=== PATIENT | female | born 2000 | race Caucasian/White ===

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

== ENCOUNTER 2021-03-19 17:13 | Emergency (ER) | payer MEDICAID, SELFPAY ==
[2021-03-19 17:29] VITALS: BP 114/68; PULSE 106; RESP 15; TEMP 36.6; O2SAT 99
--- NOTE | 2021-03-19 17:40 | ED.GENADUL_ITS ---
Discharge Plan Disposition Patient Disposition: HOME Condition: Stable Discharge Details Clinical Impression: Exudative pharyngitis Primary Care Provider: Unknown,Unknown ED Provider: Tanvi Sim Home Meds and New Rx's Prescriptions: New azithromycin [Zithromax] 500 mg tablet 500 mg PO DAILY 4 Days Qty: 4 RF: 0 Continued Mirena 20 mcg/24 hours (5 yrs) 52 mg intrauterine device 1 device IY ONCE RF: 0 ibuprofen 200 mg Tablet 400 mg PO PRN PRNRF: 0 Discharge Instructions Instructions: Pharyngitis (ED) Additional Instructions: Your rapid strep A test today is negative. It is suspected that you have another type of strep throat which may be identified by your throat culture which was also obtained today and takes several days to obtain a final result. A prescription for antibiotics has been sent electronically to your pharmacy. Take this as directed until finished. Alternate tylenol and motrin as needed and directed for pain. Follow-up with your primary care doctor in 1 week. Return to the emergency department with any worsening or new concerning symptoms . Stand Alone Forms: Work Release Discharge Data Discharge Date/Time-TO BE ENTERED AT DEPARTURE: 03/19/21 18:07 Discharge Physician: Tanvi Sim Medical Decision Making 20-year-old female presents with sore throat for the past 4 days. She has had 2 recent rapid negative COVID tests. Heart rate mildly elevated, remainder vitals within normal limits. She appears comfortable and nontoxic. She has bilateral tonsillar edema, erythema and exudates. No drooling or trismus. Her rapid strep test is negative but her presentation appears consistent with exudative pharyngitis consistent potentially with another form of strep throat. Also consider mono. Will cover with antibiotics at this time. test negative per nursing. Patient has a history of allergy to penicillin. She states she has tolerated Zithromax in the past. She was given 1 dose here and prescription sent electronically to her pharmacy. Advised to follow up with the primary care doctor for re-evaluation. Usual and customary return precautions given prior to discharge. Medical Records Medical records reviewed: Yes I reviewed the patient's medical records. HPI General Mode of arrival: ambulatory . Date/Time Provider Initiated Documentation: 03/19/21 17:35 . Limitations to Documentation: no limitations . Information obtained by: patient . HPI Narrative: Patient is a 20-year-old female who presents to the ED with a complaint of sore throat for the past 4 days. She states her main complaint is sore throat but also has felt feverish with a headache. She denies any cough or shortness of breath. She states she had a negative rapid COVID test 3 days ago and today. Related Data Home Medications Medication Instructions Recorded Confirmed levonorgestrel 20 mcg/24 hours (7 1 device IY ONCE 03/13/19 yrs) 52 mg intrauterine device azithromycin [Zithromax] 500 mg PO DAILY 4 Days #4 tab 03/19/21 ibuprofen 400 mg PO PRN PRN 03/19/21 03/19/21 Previous Rx's Medication Instructions Recorded azithromycin [Zithromax] 500 mg PO DAILY 4 Days #4 tab 03/19/21 Allergies Allergy/AdvReac Type Severity Reaction Status Date / Time Penicillins Allergy Severe Rash and Verified 03/19/21 17:34 diff breathing General Stated Complaint: Sorethroat LINDA: 4 Review of Systems All systems reviewed & are unremarkable except as noted in HPI and below Constitutional Constitutional: Reports as per HPI, Denies chills, Reports fever(s) and Reports headache(s) Eyes Eyes: Denies blurry vision ENT Ears, Nose, Mouth, and Throat: Denies dizziness, Reports headache(s), Reports sore throat and Denies throat swelling Cardiovascular Cardiovascular: Denies chest pain and Denies dyspnea Respiratory Respiratory: Denies cough and Denies dyspnea Gastrointestinal Gastrointestinal: Denies abdominal pain, Denies diarrhea and Denies vomiting Genitourinary Genitourinary: Denies hematuria and Denies dysuria Musculoskeletal Musculoskeletal: Denies back pain and Denies numbness Integumentary/Breasts Skin/Breast: Denies lesions and Denies rash Neurologic Neurologic: Denies dizziness, Reports headache(s), Denies localized weakness and Denies numbness Allergic/Immunologic Allergic/Immunologic: Denies throat swelling PFSH All Active Problems (Updated 03/19/21 @ 17:54 by Tanvi Sim DO) Exudative pharyngitis (Acute) Contraception (Acute) Allergic rhinitis, unspecified (Chronic 07/21/15) allergy to dust mites, grass, pollens, cat,dog,horse Deliberate self-cutting (Chronic) History of penicillin allergy (Chronic 10/24/11) Mild persistent asthma without complication (Chronic 07/21/15) followed by [facility] Allergy not taking her meds including the albuterol Medical History (Updated 03/19/21 @ 17:54 by Tanvi Sim DO) Allergic rhinitis Asthma Routine child health exam (10/24/11) NORMAL LEAD 2005. Family History Mother Mental disorder anxiety Father Mental disorder anxiety Other Essential hypertension MGGM Hyperlipidemia MGGM Neoplasm MGM-breast Social History (Updated 03/13/19 @ 10:26 by Helene Roth RN) Smoking/Tobacco Use Status: Never Smoking risk assessment performed?: Yes Alcohol Intake: never Drug use: Never Substance use type: does not use Pets and animals: Yes Pets and animals: dog(s) and hamster(s) Current gender identity: female Do you feel safe at home: Yes Do you feel safe in your relationship?: Yes Female Reproductive History Menstrual Age of Menarche: 12 History History 0 Para Hx # Term Pregnancies Multiple births Hx # Pregnancies Ectopic pregnancies AB induced Hx Number of Living Children AB spontaneous Exam Const General: cooperative, healthy appearing and no acute distress HENMT Head: normal to inspection Ears: hearing grossly normal bilaterally, external ears normal and TM's normal bilaterally General nose exam: external nose normal Face and sinus: normal facial exam Mouth: oral mucosae normal Throat: uvula midline, no peritonsillar masses and posterior oropharynx abnormal edema, erythema and exudates Eyes General: appearance normal, both eyes and all related structures EOM: EOM intact bilaterally Neck Neck: normal visual inspection, lymphadenopathy (b/l anterior cervical, minimal, tender) and No submandibular swelling Lymphatic: no lymphadenopathy noted Chest Chest: normal inspection of the chest and no tenderness Resp Effort & Inspection: normal respiratory effort and able to speak in complete sentences Auscultation: clear to auscultation bilaterally Cardio Rate: regular rate Rhythm: regular rhythm Skin General skin exam: no rashes or lesions noted Neuro General: patient alert, patient awake and patient oriented x3 Cognition: normal cognition Speech: speech normal Motor: muscle tone normal throughout Sensory Exam: no sensory deficits noted Extrem General: normal to inspection, full ROM, capillary refill normal, no calf tenderness bilaterally and no edema Psych Appearance: grossly normal Mental Status: mental status grossly normal Speech and Movement: speech and movement normal Affect: normal affect Course Vital Signs Vital signs: Vital Signs Temperature 97.9 F 03/19/21 17:29 Pulse 106 H 03/19/21 17:29 Respiratory Rate 15 03/19/21 17:29 Blood Pressure 114/68 03/19/21 17:29 Pulse Oximetry 99 03/19/21 17:29 Temperature 97.9 F 03/19/21 17:29 Temperature Source Temporal Artery Scan 03/19/21 17:29 Pulse 106 H 03/19/21 17:29 Respiratory Rate 15 03/19/21 17:29 Blood Pressure 114/68 03/19/21 17:29 Blood Pressure Position Sitting 03/19/21 17:29 Pulse Oximetry 99 03/19/21 17:29 Oxygen Delivery Method Room Air 03/19/21 17:29 Oxygen Flow Rate 0 03/19/21 17:29
[2021-03-19] MEDS: Dexamethasone 10 MG/ML VIAL PO (17:56)
[2021-03-19] MEDS: Azithromycin 250 MG TAB 500 MG PO ×2 (17:56→18:06)
== END 2021-03-19 18:07 | disposition home or self-care (01) ==
PROVIDERS: Emergency Provider Physician Assistant
DX: J02.8 Acute pharyngitis due to other specified organisms (principal); R00.0 Tachycardia, unspecified
CPT/HCPCS: 87880; 99283; 87081; J1100

== ENCOUNTER 2021-04-19 15:20 | Outpatient (REF) | payer MEDICAID, SELFPAY ==
[2021-04-26 12:29] LABS: Chlamydia Result Negative (Negative); GC Result Negative (Negative)
== END 2021-04-19 15:21 | disposition home or self-care (01) ==
LOC: LBN 15:20
PROVIDERS: Nurse Practitioner Family; Visit Provider Nurse Practitioner Women's Health
DX: R30.0 Dysuria (principal); Z11.3 Encounter for screening for infections with a predominantly sexual mode of transmission
CPT/HCPCS: 87086

== ENCOUNTER 2021-04-22 19:05 | Emergency (ER) | payer MEDICAID, SELFPAY ==
[2021-04-22 19:10] VITALS: BP 114/87; PULSE 92; RESP 16; TEMP 36.1; O2SAT 99
[2021-04-22 19:42] LABS: Bilirubin Negative (Negative); Blood Negative (Negative); Clarity Sl Cloudy (Clear); Glucose Negative (Negative); Ketones Negative (Negative); Leukocyte Esterase Negative (Negative); Nitrite Negative (Negative); Urobilinogen 0.2 EU/dL (Up TO 0.2)
--- NOTE | 2021-04-22 20:15 | DI.CT_ITS ---
Exam(s) CT ABDOMEN PELVIS W EXAM: CT ABDOMEN PELVIS W CLINICAL HISTORY: Right Flank pain. TECHNIQUE: Imaging Protocol: Axial computed tomography images with coronal and sagittal reformatted images were created and reviewed CONTRAST MATERIAL: Intravenous: Omnipaque 100cc Oral: None COMPARISON: CT CT ABDOMEN PELVIS W from 11/17/2018 FINDINGS: VISUALIZED LUNG BASES: No nodules nor pleural effusions evident. ABDOMEN: There is no ascites. LIVER: There are no focal hepatic lesions evident . GALLBLADDER/BILIARY: Gallbladder is contracted and difficult to assess. No obvious calculi. CBD is not dilated. PANCREAS: No evidence of pancreatic mass nor dilatation of the pancreatic duct. SPLEEN: Spleen is not enlarged. No obvious intrasplenic lesions. Splenic and portal veins are paten t. ADRENALS: There are no significant adrenal masses. KIDNEYS:No cysts evident. No solid renal masses. No calculi nor hydronephrosis.. ABDOMINAL AORTA: Abdominal aorta is not enlarged. LYMPH NODES:There is no retroperitoneal nor paraaortic adenopathy. ABDOMINAL WALL: No evidence of significant anterior abdominal wall nor inguinal hernia. GI: There is no evidence of bowel obstruction, free air, nor abscess. Increased amount of fecal material is noted throughout the length of the colon, similar to prior stud y of 2019, perhaps slightly more at this time. PELVIS: GI: No evidence of appendicitis.No evidence of sigmoid diverticular disease. LYMPH NODES: There is no intrapelvic nor inguinal adenopathy. REPRODUCTIVE: There is an IUD in the uterine canal. Appears to be in satisfactory position. The bautista meeta is anteverted. Ovaries appear age-appropriate. No extraovarian adnexal masses. No free fluid i n the pelvis. URINARY BLADDER: No calculi nor obvious masses evident OSSEOUS: No significant osseous lesions. No fractures. Sacroiliac joints unremarkable. IMPRESSION: 1. No acute significant process in the abdomen pelvis. 2. Abundant fecal material throughout the length of the colon, slightly more so than on the 2019 stud y and correlation any clinical symptoms of constipation recommended. However, there is no evidence o f acute bowel pathology. 3. IUD is noted in satisfactory position in the endometrial canal. There are no abnormal adnexal mas ses and no free fluid in the adnexal regions are cul-de-sac. 4. The gallbladder is contracted but without obvious calculi therein. There is no dilatation of the biliary tree, both intra and extrahepatic. RADIATION DOSE DELIVERED: 530.26mGy.cm Total DLP DATA REPOSITORY: All CT scans at this facility are submitted to the National Radiology Data Registry (NRDR) Dose Index Registry (DIR) with the [employer] (A[employer]). RADIATION OPTIMIZATION: All CT scans at this facility use at least one of these dose optimization te chniques: automated exposure control; mA and/or kV adjustment per patient size (includes targeted exa ms where dose is matched to clinical indication); or iterative reconstruction.
[2021-04-22 20:22] LABS: Abs Immature Grans 0.01 10^3/uL (0.0-0.06); Absolute Basophil Count 0.08 10^3/uL (0.0-0.2); Absolute Eosinophil Count 0.69 10^3/uL (0.0-0.7); Absolute Lymphocyte Count 3.46 10^3/uL (1.2-3.4); Absolute Monocyte Count 0.78 10^3/uL (0.1-0.8); Absolute Neutrophil Count 3.51 10^3/uL (1.2-6.7); Basophils % 0.9; Eosinophils % 8.1; HCT 38.3 % (36.0-46.0); HGB 12.8 g/dL (11.2-15.7); Immature Grans % 0.1; Lymphocytes % 40.6; MCH 30.6 pg (27.0-33.0); MCHC 33.4 % (32.0-36.0); MCV 91.6 fL (80-95); MPV 9.3 fL (8.0-11.0); Monocytes % 9.1; Neutrophils % 41.2; Nucleated RBC 0 %; Platelet Count 311 10^3/uL (130-400); RBC 4.18 10^6/uL (3.93-5.22); RDW 12.1 % (11.7-14.6); WBC 8.53 10^3/uL (4.4-10.8)
[2021-04-22 20:36] LABS: ALT 31 U/L (14-59); AST 26 U/L (15-37); Albumin 4.5 g/dL (3.4-5.0); Alkaline Phosphatase 91 U/L (46-116); Anion Gap 7.9 mmol/L (3-11); BUN 12 mg/dL (7-18); Bilirubin, Total 0.2 mg/dL (0.2-1.0); CO2 26.1 mmol/L (21.0-32.0); CREATININE 1.1 mg/dL (0.55-1.02); Calcium 9.6 mg/dL (8.5-10.1); Chloride 103 mmol/L (98-107); Glucose 98 mg/dL (74-106); Magnesium 2.2 mg/dL (1.8-2.4); Sodium 137 mmol/L (136-145); Total Protein 7.8 g/dL (6.4-8.2)
--- NOTE | 2021-04-22 21:10 | W.ED.GENAD ---
Discharge Plan Disposition Patient Disposition: HOME Condition: Stable Discharge Details Clinical Impression: Constipation, Abdominal pain Primary Care Provider: Unknown,Unknown ED Provider: Rashida East Home Meds and New Rx's Prescriptions: Continued Mirena 20 mcg/24 hours (5 yrs) 52 mg intrauterine device 1 device IY ONCE 0RF ibuprofen 200 mg Tablet 400 mg PO PRN PRN0RF sulfamethoxazole-trimethoprim 800-160 mg tablet 0RF Discharge Instructions Instructions: Constipation (ED), Abdominal Pain (ED) Additional Instructions: Follow up with primary care provider in 3-5 days. Return to ED sooner if any worsening or concerns. Increase oral fluids. Please keep your [facility] appointment on Saturday as previously scheduled. Consider taking an [id number] stool softener such as Colace or similar. You may also try eating prunes or drinking prune juice. Please return to the ER for any worsening pain, fever, vomiting. Please take Tylenol or Ibuprofen with food every 4-6 hours as needed for pain and swelling. Medical Decision Making 20-year-old female presents to the ER with chief complaint of suprapubic abdominal pressure and back pain. Patient reports that 2 weeks ago she developed symptoms that she thought were a yeast infection including discharge and burning. She reports she was seen by [facility] approximately a week ago and was diagnosed with urinary tract infection and was placed on antibiotic. Patient cannot remember the name of the antibiotic however she finished her last medication yesterday and is continuing to have pressure and pain. She reports sharp intermittent pain. She denies any purulent drainage. She does have an IUD placed and states that she has an appointment on Saturday to have it removed. CBC shows no leukocytosis,, BUN 12 creatinine 1.1 GFR greater than 60 urinalysis shows no evidence for infection including no leukocytes no nitrite. Will perform CT abdomen pelvis to rule out kidney stone or pyelonephritis, also discussed pelvic exam and testing for gonorrhea chlamydia and vaginal pathogen screen. Patient agrees to allow me to remove her IUD as well. [facility]. Pelvic exam performed swabs obtained for vaginal pathogens and GC chlamydia. Patient tolerated with some difficulty. Cervical os was reviewed, there is some thick white discharge noted no significant lesions there is however small amount of erythema noted to the cervical os. Bimanual exam performed adnexa nontender. CT shows moderate stool retention IMPRESSION: 1. Moderate retained fecal material throughout the colon. No acute bowel pathology demonstrated. 2. Ovaries partially obscured but normal in size. Possible trace free pelvic fluid on the right. 3. T-shaped intrauterine device in situ. 4. Uniform renal parenchymal enhancement. No hydronephrosis or other evidence of obstructive uropathy. Discussed CT results with patient who verbalized understanding. Patient states she did have a normal bowel movement this morning. I did encourage her to keep her upcoming appointment on Saturday with [facility] to review the results of the swabs with her. Discuss strict return instructions. Patient be discharged home. Lab Data Lab results reviewed: Yes I reviewed the patient's lab results. Lab results narrative: Laboratory Tests Range/Units 04/22/21 04/22/21 04/22/21 19:20 20:15 20:15 WBC (4.4-10.8) 10^3/uL 8.53 RBC (3.93-5.22) 10^6/uL 4.18 Hgb (11.2-15.7) g/dL 12.8 Hct (36.0-46.0) % 38.3 MCV (80-95) fL 91.6 MCH (27.0-33.0) pg 30.6 MCHC (32.0-36.0) % 33.4 RDW (11.7-14.6) % 12.1 Plt Count (130-400) 10^3/uL 311 MPV (8.0-11.0) fL 9.3 Immature Gran % 0.1 Neutrophils % 41.2 Lymphocytes % 40.6 Monocytes % 9.1 Eosinophils % 8.1 Basophils % 0.9 Nucleated RBC % % 0 Absolute Neutrophils (1.2-6.7) 10^3/uL 3.51 Absolute Lymphocytes (1.2-3.4) 10^3/uL 3.46 H Absolute Monocytes (0.1-0.8) 10^3/uL 0.78 Absolute Eosinophils (0.0-0.7) 10^3/uL 0.69 Absolute Basophils (0.0-0.2) 10^3/uL 0.08 Sodium (136-145) mmol/L 137 Potassium (3.5-5.1) mmol/L 4.0 Chloride (98-107) mmol/L 103 Carbon Dioxide (21.0-32.0) mmol/L 26.1 Anion Gap (3-11) mmol/L 7.9 BUN (7-18) mg/dL 12 Creatinine (0.55-1.02) mg/dL 1.1 H Estimated GFR/1.73 m2 (mL/min/1.73m2) >= 60.00 Glucose (74-106) mg/dL 98 Calcium (8.5-10.1) mg/dL 9.6 Magnesium (1.8-2.4) mg/dL 2.2 Total Bilirubin (0.2-1.0) mg/dL 0.2 AST (15-37) U/L 26 ALT (14-59) U/L 31 Alkaline Phosphatase (46-116) U/L 91 Total Protein (6.4-8.2) g/dL 7.8 Albumin (3.4-5.0) g/dL 4.5 Urine Color (Yellow) Yellow Urine Clarity (Clear) Sl Cloudy Urine pH (5-8) 8.0 Ur Specific [place] (1.005-1.025) 1.020 Urine Protein (Negative) mg/dL Negative Urine Ketones (Negative) mg/dL Negative Urine Blood (Negative) Negative Urine Nitrite (Negative) Negative Urine Bilirubin (Negative) Negative Urine Urobilinogen (Up TO 0.2) EU/dL 0.2 Ur Leukocyte Esterase (Negative) Negative Urine Glucose (Negative) mg/dL Negative HPI General Mode of arrival: ambulatory. Date/Time Provider Initiated Documentation: 04/22/21 19:15. Limitations to Documentation: no limitations. Information obtained by: patient, RN notes reviewed and old records reviewed. HPI Narrative: 20-year-old female presents to the ER with chief complaint of suprapubic abdominal pressure and back pain. Patient reports that 2 weeks ago she developed symptoms that she thought were a yeast infection including discharge and burning. She reports she was seen by [facility] approximately a week ago and was diagnosed with urinary tract infection and was placed on antibiotic. Patient cannot remember the name of the antibiotic however she finished her last medication yesterday and is continuing to have pressure and pain. She reports sharp intermittent pain. She denies any purulent drainage. She does have an IUD placed and states that she has an appointment on Saturday to have it removed. Related Data Home Medications Medication Instructions Recorded Confirmed levonorgestrel 20 mcg/24 hours (7 1 device IY ONCE 03/13/19 04/22/21 yrs) 52 mg intrauterine device (Mirena) ibuprofen 200 mg tablet 400 mg PO PRN PRN 03/19/21 04/22/21 sulfamethoxazole 800 tab 04/22/21 mg-trimethoprim 160 mg tablet Allergies Allergy/AdvReac Type Severity Reaction Status Date / Time Penicillins Allergy Severe Rash and Verified 04/22/21 19:13 diff breathing General Stated Complaint: Abd Prob LINDA: 3 Review of Systems All systems reviewed & are unremarkable except as noted in HPI and below Gastrointestinal Gastrointestinal: Reports abdominal pain, Denies diarrhea, Denies nausea and Denies vomiting Genitourinary Genitourinary: Reports dysuria and Reports pelvic pain PFSH All Active Problems (Updated 04/22/21 @ 22:54 by Rashida East) Constipation (Acute) Abdominal pain (Acute) Contraception (Acute) Allergic rhinitis, unspecified (Chronic 07/21/15) allergy to dust mites, grass, pollens, cat,dog,horse Deliberate self-cutting (Chronic) History of penicillin allergy (Chronic 10/24/11) Mild persistent asthma without complication (Chronic 07/21/15) followed by [facility] Allergy not taking her meds including the albuterol Medical History Allergic rhinitis Asthma Routine child health exam (10/24/11) NORMAL LEAD 2005. Family History Mother Mental disorder anxiety Father Mental disorder anxiety Other Essential hypertension MGGM Hyperlipidemia MGGM Neoplasm MGM-breast Social History Smoking/Tobacco Use Status: Current every day Tobacco Type: e-cigarettes Smoking risk assessment performed?: Yes Alcohol Intake: current Alcohol Intake frequency: a few times a month Drug use: Never Substance use type: does not use Pets and animals: Yes Pets and animals: dog(s) and hamster(s) Current gender identity: female Do you feel safe at home: Yes Do you feel safe in your relationship?: Yes Female Reproductive History Menstrual Age of Menarche: 12 History History 0 Para Hx # Term Pregnancies Multiple births Hx # Pregnancies Ectopic pregnancies AB induced Hx Number of Living Children AB spontaneous Exam Narrative Exam Narrative: Constitutional: Alert and oriented x3. Appears stated age. Normal body habitus. Head: Normocephalic, no trauma. Eyes: Pupils PERRL, Red reflex noted, EOM's intact. Eyelids symmetrical without lesions, discharge, or swelling. ENT: Bilateral TM's WNL, External ear normal to inspection, no mastoid TTP, swelling, or erythema, Nasal turbinates WNL, no nasal discharge. Normal dentition, Posterior pharynx WNL, no exudate. Chest: RRR, Normal S1, S2, distal pulses intact. Resp: Lungs clear to auscultation bilaterally, no wheezes, rales, or rhonchi. Abdomen: Soft, non-distended, Normoactive bowel sounds all 4 quads. Musculoskeletal: Normal gait, 5/5 strength to all four extremities. Skin: No suspicious rashes or lesions. Capillary refill less than 2 sec. Neurologic: Cranial nerves II-XII intact. Alert and oriented x 3. Motor: No deficits noted. Sensory: Intact bilaterally all 4 extremities. Reflexes: DTR's intact bilaterally.. Hematologic/Lymphatic: No ecchymosis, no lymphadenopathy. General: bimanual renal exam normal bilaterally External Female Exam: normal external appearance Speculum Exam - Vagina: normal appearance of the vagina, abnormal vaginal discharge white and other, no lesions, No vaginal bleeding, no masses and nontender Speculum Exam - Cervix: normal appearance of the cervix (Mild erythema at Os) and closed Bimanual Exam- Vagina & Uterus: normal bimanual exam, uterine mobility normal, non-tender and no cervical motion tenderness Bimanual Exam- Adnexa, other: normal adnexae and no tenderness OB/External & Speculum: No vaginal bleeding Course Vital Signs Vital signs: Vital Signs Temperature 36.1 C L 04/22/21 19:10 Pulse 92 H 04/22/21 19:10 Respiratory Rate 16 04/22/21 19:10 Blood Pressure 114/87 04/22/21 19:10 Pulse Oximetry 99 04/22/21 19:10 Temperature 36.1 C L 04/22/21 19:10 Pulse 92 H 04/22/21 19:10 Respiratory Rate 16 04/22/21 19:10 Respiratory Effort Non-Labored 04/22/21 19:14 Blood Pressure 114/87 04/22/21 19:10 Pulse Oximetry 99 04/22/21 19:10 Pain Level 7 04/22/21 19:10 Lab/Test Results Lab/Test Results: Laboratory Tests Range/Units 04/22/21 04/22/21 04/22/21 19:20 20:15 20:15 WBC (4.4-10.8) 10^3/uL 8.53 RBC (3.93-5.22) 10^6/uL 4.18 Hgb (11.2-15.7) g/dL 12.8 Hct (36.0-46.0) % 38.3 MCV (80-95) fL 91.6 MCH (27.0-33.0) pg 30.6 MCHC (32.0-36.0) % 33.4 RDW (11.7-14.6) % 12.1 Plt Count (130-400) 10^3/uL 311 MPV (8.0-11.0) fL 9.3 Immature Gran % 0.1 Neutrophils % 41.2 Lymphocytes % 40.6 Monocytes % 9.1 Eosinophils % 8.1 Basophils % 0.9 Nucleated RBC % % 0 Absolute Neutrophils (1.2-6.7) 10^3/uL 3.51 Absolute Lymphocytes (1.2-3.4) 10^3/uL 3.46 H Absolute Monocytes (0.1-0.8) 10^3/uL 0.78 Absolute Eosinophils (0.0-0.7) 10^3/uL 0.69 Absolute Basophils (0.0-0.2) 10^3/uL 0.08 Sodium (136-145) mmol/L 137 Potassium (3.5-5.1) mmol/L 4.0 Chloride (98-107) mmol/L 103 Carbon Dioxide (21.0-32.0) mmol/L 26.1 Anion Gap (3-11) mmol/L 7.9 BUN (7-18) mg/dL 12 Creatinine (0.55-1.02) mg/dL 1.1 H Estimated GFR/1.73 m2 (mL/min/1.73m2) >= 60.00 Glucose (74-106) mg/dL 98 Calcium (8.5-10.1) mg/dL 9.6 Magnesium (1.8-2.4) mg/dL 2.2 Total Bilirubin (0.2-1.0) mg/dL 0.2 AST (15-37) U/L 26 ALT (14-59) U/L 31 Alkaline Phosphatase (46-116) U/L 91 Total Protein (6.4-8.2) g/dL 7.8 Albumin (3.4-5.0) g/dL 4.5 Urine Color (Yellow) Yellow Urine Clarity (Clear) Sl Cloudy Urine pH (5-8) 8.0 Ur Specific [place] (1.005-1.025) 1.020 Urine Protein (Negative) mg/dL Negative Urine Ketones (Negative) mg/dL Negative Urine Blood (Negative) Negative Urine Nitrite (Negative) Negative Urine Bilirubin (Negative) Negative Urine Urobilinogen (Up TO 0.2) EU/dL 0.2 Ur Leukocyte Esterase (Negative) Negative Urine Glucose (Negative) mg/dL Negative POC- Test(urine) Negative
[2021-04-22] MEDS: Omnipaque 350 MG/ML 100 ML BTL IJ (21:16)
--- NOTE | 2021-04-22 21:52 | DI.VRAD_ITS ---
PROCEDURE INFORMATION: Exam: CT Abdomen And Pelvis With Contrast Exam date and time: 04/22/2021 8:27 PM Age: 20 years old Clinical indication: Other: Right flank pain TECHNIQUE: Imaging protocol: Computed tomography of the abdomen and pelvis with contrast. COMPARISON: CT ABDOMEN PELVIS W 11/17/2018 3:27 PM FINDINGS: Lungs: Lung bases clear. Liver: Normal appearing liver. Gallbladder and bile ducts: Gallbladder partially collapsed. No calcified gallstones seen. No biliary dilatation. Pancreas: Normal appearing pancreas. Spleen: Normal appearing spleen. Adrenal glands: Normal appearing adrenal glands. Kidneys and ureters: Normal appearing kidneys. No hydronephrosis. Stomach and bowel: No oral contrast. Stomach moderately distended with ingested material. No small bowel dilatation to suggest obstruction. Moderate retained fecal material throughout the colon and rectum. No evidence of diverticulitis or colitis. Appendix: Appendix partially obscured but normal in caliber and appearance through its visualized portion, best demonstrated by high-resolution coronal re-formatted imaging created at the workstation. Intraperitoneal space: Possible trace fluid along the right pelvic sidewall. Otherwise, no gross ascites. No free air. Vasculature: Normal caliber abdominal aorta. Lymph nodes: Scattered shotty mesenteric lymph nodes, nonspecific. Shotty bilateral groin nodes, nonspecific. Urinary bladder: Normal appearing urinary bladder. Reproductive: Anteverted uterus, normal in size. T-shaped intrauterine device in situ. Ovaries partially obscured but normal in size. Bones/joints: No acute fracture seen among the bones of the abdomen or pelvis. Soft tissues: No significant ventral or inguinal hernia. IMPRESSION: 1. Moderate retained fecal material throughout the colon. No acute bowel pathology demonstrated. 2. Ovaries partially obscured but normal in size. Possible trace free pelvic fluid on the right. 3. T-shaped intrauterine device in situ. 4. Uniform renal parenchymal enhancement. No hydronephrosis or other evidence of obstructive uropathy. Dictated and Authenticated by: Ed Mendiola MD. Ordering:ARTIS Field MD
[2021-04-22 22:49] VITALS: BP 101/57; PULSE 84; RESP 16; TEMP 36.7; O2SAT 99
[2021-04-22 23:05] VITALS: BP 101/57; PULSE 84; RESP 16; TEMP 36.7; O2SAT 99
== END 2021-04-22 23:02 | disposition home or self-care (01) ==
PROVIDERS: Emergency Provider Registered Nurse Emergency
DX: K59.00 Constipation, unspecified (principal); R10.30 Lower abdominal pain, unspecified
CPT/HCPCS: 36415; 80053; 81025; 87491; 87591; 99285; 74177; 81003; 83735; 85025; 87480; 87510; 87660; 99284; J3490

== ENCOUNTER 2021-04-24 18:08 | Outpatient (REF) | payer MEDICAID, SELFPAY | END 2021-04-24 18:09 | disposition home or self-care (01) | LOC: LBN 18:08 | PROVIDERS: Visit Provider Nurse Practitioner Family | DX: Z11.3 Encounter for screening for infections with a predominantly sexual mode of transmission (principal) | CPT/HCPCS: 87491; 87591 ==

== ENCOUNTER 2022-02-13 12:21 | Outpatient (REF) | payer MEDICAID, SELFPAY | END 2022-02-13 12:22 | disposition home or self-care (01) | LOC: LBN 12:21 | PROVIDERS: PCP Nurse Practitioner Women's Health; Visit Provider Nurse Practitioner Women's Health | DX: N76.0 Acute vaginitis (principal) | CPT/HCPCS: 87480; 87510; 87660 ==

== ENCOUNTER 2022-02-20 18:52 | Emergency (ER) | payer MEDICAID, SELFPAY ==
[2022-02-20 18:57] VITALS: BP 93/60; PULSE 121; RESP 16; TEMP 37.1; O2SAT 99
--- NOTE | 2022-02-20 19:25 | ED.GENADUL_ITS ---
Discharge Plan Disposition Patient Disposition: Home Condition: Stable Discharge Details Clinical Impression: Otitis media with rupture of tympanic membrane, Influenza A Primary Care Provider: Berta CHANCE,[place] ED Provider: Augie Gregory Home Meds and New Rx's Prescriptions: New doxycycline hyclate 100 mg tablet 100 mg PO BID Qty: 13 0RF No Action norgestimate-ethinyl estradiol [Sprintec (28)] 0.25-35 mg-mcg tablet 1 tab PO DAILY Qty: 84 3RF escitalopram oxalate [Lexapro] 5 mg tablet 5 mg PO QHS Qty: 30 0RF ibuprofen 200 mg Tablet 400 mg PO PRN PRN Discharge Instructions Instructions: Influenza (ED), Ear Infection (ED) Additional Instructions: Flu testing today was performed and positive for influenza A. You are highly contagious. Please maintain home isolation until you are symptom-free with no cough or fever for 24 hours. You have a perforated right eardrum. Please take antibiotic as prescribed. Be sure to complete the full course. Please follow-up with director of teaching and learning. Call tomorrow to schedule a follow-up ointment. Return to the emerge department immediately for any worsening or new concerning symptoms. Stand Alone Forms: Work Release Medical Decision Making 1930 -- 21yo f here with recent URI now with ruptured right TM. Patient is tachycardic with low normal blood pressure. Discussed rehydration options and patient prefer oral rehydration at this time. I will give p.o. fluid and reassess. Plan to initiate treatment with clindamycin as patient has severe penicillin allergy. Consider influenza versus RSV versus COVID. --Patient was given initial dose of clindamycin as ordered. I decided to switch to doxycycline and will prescribe this for her. I will refer her to follow-up with ear nose and throat for treatment of pe rforated TM. Patient is positive for influenza. Usual customary discharge instructions reviewed. Lab Data Lab results reviewed: Yes I reviewed the patient's lab results. Labs: Laboratory Tests Range/Units 02/20/22 18:30 COVID-19 Source Nasopharynx SARS-CoV-2 (PCR) (Negative) Negative Influenza Type A (PCR) (Negative) Positive A Influenza Type B (PCR) (Negative) Negative RSV (PCR) (Negative) Negative HPI General Mode of arrival: ambulatory . Date/Time Provider Initiated Documentation: 02/20/22 19:10 . Limitations to Documentation: no limitations . Information obtained by: patient . HPI Narrative: 21-year-old female presents with chief complaint of ear pain. Patient notes right ear started to ache yesterday. Today she noted drainage from her ear. Patient states she has had an upper respiratory tract infection over the past 1 week. Symptoms seem to improve Saturday and she went to work yesterday. This is when her ear pain started. She does note temperature today of 101. Ear discharge is significant and looks like pus. No associated sore throat. She does still have mild cough. Related Data Home Medications Medication Instructions Recorded Confirmed ibuprofen 200 mg tablet 400 mg PO PRN PRN 03/19/21 02/20/22 norgestimate 0.25 mg-ethinyl 1 tab PO DAILY #84 tabs 01/04/22 02/20/22 estradiol 35 mcg tablet (Sprintec (28)) escitalopram oxalate 5 mg tablet 5 mg PO QHS #30 tabs 02/06/22 02/20/22 (Lexapro) doxycycline hyclate 100 mg tablet 100 mg PO BID #13 tabs 02/20/22 Previous Rx's Medication Instructions Recorded norgestimate 0.25 mg-ethinyl 1 tab PO DAILY #84 tabs 01/04/22 estradiol 35 mcg tablet (Sprintec (28)) escitalopram oxalate 5 mg tablet 5 mg PO QHS #30 tabs 02/06/22 (Lexapro) doxycycline hyclate 100 mg tablet 100 mg PO BID #13 tabs 02/20/22 Allergies Allergy/AdvReac Type Severity Reaction Status Date / Time Penicillins Allergy Severe Rash and Verified 02/20/22 19:01 diff breathing General Stated Complaint: EarProblem LINDA: 3 Review of Systems All systems reviewed & are unremarkable except as noted in HPI and below Constitutional Constitutional: Reports fever(s) ENT Ears, Nose, Mouth, and Throat: Reports as per HPI Respiratory Respiratory: Reports cough PFSH All Active Problems (Updated 02/20/22 @ 20:28 by Augie Gregory MD) Otitis media with rupture of tympanic membrane (Acute) Influenza A (Acute) Anxiety (Chronic) Contraception (Acute) Allergic rhinitis, unspecified (Chronic 07/21/15) allergy to dust mites, grass, pollens, cat,dog,horse Deliberate self-cutting (Chronic) History of penicillin allergy (Chronic 10/24/11) Mild persistent asthma without complication (Chronic 07/21/15) followed by [facility] Allergy not taking her meds including the albuterol Medical History Allergic rhinitis Asthma Routine child health exam (10/24/11) NORMAL LEAD 2005. Family History Mother Mental disorder anxiety Father Mental disorder anxiety Other Essential hypertension MGGM Hyperlipidemia MGGM Neoplasm MGM-breast Social History Smoking/Tobacco Use Status: Current every day Tobacco Type: e-cigarettes Smoking risk assessment performed?: Yes Alcohol Intake: current Alcohol Intake frequency: a few times a month Drug use: Never Substance use type: does not use Pets and animals: Yes Pets and animals: dog(s) and hamster(s) Current gender identity: female Do you feel safe at home: Yes Do you feel safe in your relationship?: Yes Female Reproductive History Menstrual Age of Menarche: 12 control method: pills History History 0 Para Hx # Term Pregnancies Multiple births Hx # Pregnancies Ectopic pregnancies AB induced Hx Number of Living Children AB spontaneous Exam Const General: cooperative and no acute distress HENMT Ears: TM normal on the left, no periauricular adenopathy, hearing grossly impaired on the right and TM abnormal (Perforated, clear yellow discharge with pink tinge) Mouth: moist mucous membranes Throat: posterior oropharynx normal Eyes Conjunctivae: normal conjunctivae Sclera: normal sclerae Neck Neck: trachea midline and supple Resp Auscultation: clear to auscultation bilaterally, no rales, no rhonchi and no wheezes Cardio Rate: tachycardic Rhythm: regular rhythm Neuro General: patient alert, patient awake and tone normal Course Vital Signs Vital signs: Vital Signs Temperature 37.1 C 02/20/22 18:57 Pulse 121 H 02/20/22 18:57 Respiratory Rate 16 02/20/22 18:57 Blood Pressure 93/60 L 02/20/22 18:57 Pulse Oximetry 99 02/20/22 18:57 Temperature 37.1 C 02/20/22 18:57 Temperature Source Oral 02/20/22 18:57 Pulse 121 H 02/20/22 18:57 Respiratory Rate 16 02/20/22 18:57 Respiratory Effort 02/20/22 18:57 Blood Pressure 93/60 L 02/20/22 18:57 Blood Pressure Position Sitting 02/20/22 18:57 Pulse Oximetry 99 02/20/22 18:57 Oxygen Delivery Method Room Air 02/20/22 18:57 Oxygen Flow Rate 0 02/20/22 18:57 Pain Level 8 02/20/22 19:02
[2022-02-20] MEDS: Clindamycin 150 MG CAP 450 MG PO (19:34)
[2022-02-20] MEDS: Doxycycline Hyclate 100 MG CAP PO (19:52)
[2022-02-20 20:13] LABS: COVID-19 PCR Negative (Negative); Influenza A PCR Positive (Negative); Influenza B PCR Negative (Negative); RSV PCR Negative (Negative)
[2022-02-20 20:14] LABS: Source Nasopharynx
== END 2022-02-20 20:38 | disposition home or self-care (01) ==
PROVIDERS: Emergency Provider Student in an Organized Health Care Education/Training Program; PCP Nurse Practitioner Women's Health
DX: J10.83 Influenza due to other identified influenza virus with otitis media (principal); H72.91 Unspecified perforation of tympanic membrane, right ear; R00.0 Tachycardia, unspecified; J45.909 Unspecified asthma, uncomplicated; Z87.09 Personal history of other diseases of the respiratory system; Z20.822 Contact with and (suspected) exposure to COVID-19
CPT/HCPCS: 87637; 99283; 99284

== ENCOUNTER 2023-04-12 02:52 | Outpatient (CLI) | payer MEDICAID, SELFPAY ==
[2023-04-12 15:48] LABS: TSH (W/Ref FT4) 1.08 uIU/mL (0.36-3.74)
[2023-04-12 23:11] LABS: FSH 8.6 mIU/mL (See Note)
[2023-04-12 23:18] LABS: LH 18.3 mIU/mL (See Note); Prolactin 7.4 ng/mL (See Note)
[2023-04-20 10:01] LABS: Testosterone, Free 1.24 ng/dL (<0.13-1.08); Testosterone, Total 70 ng/dL (8-60)
== END 2023-04-12 02:53 | disposition home or self-care (01) ==
LOC: LBO 02:52
PROVIDERS: PCP Nurse Practitioner Women's Health; Visit Provider Advanced Practice Midwife
DX: N91.2 Amenorrhea, unspecified (principal)
CPT/HCPCS: 36415; 84402; 84403; 83001; 83002; 84146; 84443

== ENCOUNTER 2024-10-05 09:56 | Emergency (ER) | payer OTHER, SELFPAY ==
[2024-10-05 10:16] VITALS: BP 121/84; PULSE 82; RESP 18; TEMP 36.7; O2SAT 98
[2024-10-05 10:19] VITALS: BP 121/84; PULSE 82; RESP 18; TEMP 36.7; O2SAT 98
--- NOTE | 2024-10-05 11:32 | ED.GENADUL_ITS ---
Discharge Plan Disposition Patient Disposition: Home Condition: Good Discharge Details Clinical Impression: Abdominal pain Primary Care Provider: Shannon Leon ED Provider: Jen Herrera Home Meds and New Rx's Prescriptions: New ondansetron 4 mg tablet,disintegrating 4 mg PO Q8H PRN (Reason: nausea and vomiting) Qty: 20 0RF Continued escitalopram oxalate 20 mg tablet See Rx Instructions .ROUTE .COMPLEX Qty: 90 2RF Dose Instruction: TAKE ONE TABLET BY MOUTH EVERY DAY Rx Instructions: TAKE ONE TABLET BY MOUTH EVERY DAY ibuprofen 200 mg Tablet 400 mg PO PRN PRN Discharge Instructions Instructions: Abdominal Pain, Adult ED Additional Instructions: As we discussed, your labs and imaging are reassuring. No evidence of appendicitis, ovarian torsion. You do have a small cyst but this is likely normal given where you are in your cycle. Pain may be associated with viral illness or inflammation. Encourage hydration. Please continue with Tylenol and ibuprofen as needed for discomfort. Please follow-up with primary care in 1 to 2 weeks for reevaluation. If you develop fever/chills, inability stay hydrated, increased pain or other new/worsening symptoms please seek care urgently once again. You have been prescribed Zofran in the event that your nausea recurs, this is been sent to your local pharmacy. Stand Alone Forms: Work Release Referrals: Shannon Leon MD [Primary Care Provider, Pediatrics Medical] Discharge Data Discharge Date/Time-TO BE ENTERED AT DEPARTURE: 10/05/24 15:13 HPI General Date/Time Provider Initiated Documentation: 10/05/24 10:13 . Limitations to Documentation: no limitations . Information obtained by: patient and RN notes reviewed . History of Present Illness 24 year old F presents to the emergency department with the chief complaint of RLQ abdominal pain, described as moderate, Quality is described as aching, and is localized to the abdomen. Patient reports no radiation. Patient started experiencing this day(s) (1) and it has been constant. No relieving factors improve symptom(s), No exacerbating factors reported . Patient notes nausea/vomiting (nausea and decreased appetitie); denies chest pain, cough, diaphoresis, fever/chills, shortness of breath and weakness. Patient did receive the following treatments prior to arrival, none Related Data Home Medications ?Medication ?Instructions ?Recorded ?Confirmed ibuprofen 200 mg tablet 400 mg PO PRN PRN 03/19/21 0 10/05/24 escitalopram oxalate 20 mg tablet See Rx Instructions .Route 04/22/24 10/05/24 .COMPLEX #90 tabs ondansetron 4 mg disintegrating 4 mg PO Q8H PRN nausea and 10/05/24 tablet vomiting #20 tabs Previous Rx's ?Medication ?Instructions ?Recorded escitalopram oxalate 20 mg tablet See Rx Instructions .Route 04/22/24 .COMPLEX #90 tabs ondansetron 4 mg disintegrating 4 mg PO Q8H PRN nausea and 10/05/24 tablet vomiting #20 tabs Allergies Allergy/AdvReac Type Severity Reaction Status Date / Time Penicillins Allergy Severe Rash and Verified 10/05/24 10:20 diff breathing General Stated Complaint: Abd Prob LINDA: 3 Review of Systems Constitutional Constitutional: Reports as per HPI, Denies chills, Denies fever(s) and Denies headache(s) ENT Ears, Nose, Mouth, and Throat: Denies headache(s) Cardiovascular Cardiovascular: Reports as per HPI, Denies chest pain and Denies dyspnea Respiratory Respiratory: Reports as per HPI, Denies cough and Denies dyspnea Gastrointestinal Gastrointestinal: Reports as per HPI Musculoskeletal Musculoskeletal: Reports as per HPI and Denies back pain Integumentary/Breasts Skin/Breast: Reports as per HPI and Denies rash Neurologic Neurologic: Reports as per HPI and Denies headache(s) Exam Const General: cooperative, healthy appearing, comfortable, no acute distress and well developed Nutritional Appearance: average body habitus and well nourished Orientation: alert and awake [facility] Head: normal to inspection Mouth: moist mucous membranes Resp Effort & Inspection: normal respiratory effort, able to speak in complete sentences and no respiratory distress Auscultation: clear to auscultation bilaterally, no rales, no rhonchi and no wheezes Cardio Rate: regular rate Rhythm: regular rhythm Heart Sounds: S1 normal and S2 normal GI Inspection: normal to inspection Palpation: soft, no hepatosplenomegaly, no aortic enlargement, not firm, no g uarding, not rigid, tender in the RLQ, at McBurney's point and Rovsing's sign positive; not periumbilically, Valentin's sign negative and with no rebound tenderness and No ascites Percussion: normal to percussion Auscultation: normal bowel sounds Back/Spine/Pelvis Back: no CVA tenderness Skin General skin exam: no rashes or lesions noted Trauma: no lacerations or abrasions Neuro General: patient alert and patient awake Cognition: normal cognition Speech: speech normal Gait: normal gait Course Vital Signs Vital signs: Vital Signs Temperature 36.7 C 10/05/24 10:16 Pulse 82 10/05/24 10:16 Respiratory Rate 18 10/05/24 10:16 Blood Pressure 121/84 10/05/24 10:16 Pulse Oximetry 98 10/05/24 10:16 Temperature 36.7 C 10/05/24 10:19 Temperature Source Oral 10/05/24 10:19 Pulse 82 10/05/24 10:19 Respiratory Rate 18 10/05/24 10:19 Blood Pressure 121/84 10/05/24 10:19 Pulse Oximetry 98 10/05/24 10:19 Oxygen Delivery Method Room Air 10/05/24 10:19 Oxygen Flow Rate 0 10/05/24 10:19 Pain Level 7 10/05/24 10:19 Medical Decision Making Patient is a pleasant 24 year old female with past medical history significant for anxiety, presented with chief complaint of right lower quadrant pain. She reports that she began feeling ill yesterday with some nausea and mild discomfort that was more so in the right lower side of her back. Pain is now more isolated to the anterior aspect of the abdomen. She is not had pain like this historically. She does report that she has had a history of ovarian cyst but states that this pain is much different than her typical. Her last menstrual cycle was last week. She denies any fevers or chills. No known sick contacts. No change in bowel or bladder habits. Has had nausea but denies any vomiting. No previous abdominal surgeries. Denies any vaginal discharge. Patient does report that she is trying to conceive so is not taking any contraceptives, is taking prenatals. On exam, patient appears nontoxic. She is hemodynamically stable. Afebrile. She is point tender directly over McBurney's point. No pain lower into the pelvis. No CVA tenderness. Negative Valentin sign. She is not associated with discomfort at all with p.o. intake, no concern at this point for acute cholecystitis or gallbladder dysfunction. More likely, concern for appendicitis given the progression and location of discomfort at this point. She does have a history of ovarian cyst but again, patient reports this does feel different. Will obtain CT and labs, give hydration to the patient. Will give Tylenol to help with discomfort. Labs without acute abnormality. Patient is not . CT reviewed by radiologist with no acute abnormality noted aside from a 1.7 cm luteal cyst. Given the size, unlikely to be associated with torsion. This also has decreased with the patient having started symptoms yesterday, would expect that if she was truly torsed as she would have a more fulminant presentation at this point. However, given her history will touch base with [facility] and have their opinion on this as well. Spoke with OBGYN, she advised that the 1.7cm is more physiologic than pathologic. with no evidence of torsion on CT, finds this very unlikely and does not feel that transvaginal ultrasound is warranted at this point, particularly given the time since onset of symptoms. Discussed with patient. Advised may be associated with muscular discomfort or viral illness although no significant inflammation in the CT. Advised supportive care. Encouraged hyration. Return precautions discussed. Encouraged close f/u with PCP for reevaluation. All of her questions and concerns were addressed, she is in agreement with this plan. PFSH All Active Problems (Updated 10/05/24 @ 14:30 by NICOLE Vasquez) Abdominal pain (Acute) Immunization due (Acute) Elevated testosterone level (Acute) Polycystic ovarian syndrome (Acute) Amenorrhea (Acute) Anxiety (Chronic) Medical History Irregular bleeding related to missing OCPs Allergic rhinitis, unspecified (07/21/15) allergy to dust mites, grass, pollens, cat,dog,horse Deliberate self-cutting History of penicillin allergy (10/24/11) Mild persistent asthma without complication (07/21/15) followed by [facility] Allergy not taking her meds including the albuterol Family History Mother Mental disorder anxiety Father Mental disorder anxiety Other Essential hypertension MGGM Hyperlipidemia MGGM Neoplasm MGM-breast Social History Smoking/Tobacco Use Status: Current every day Tobacco Type: e-cigarettes Smoking risk assessment performed?: Yes Alcohol Intake: current Alcohol Intake frequency: a few times a month Drug use: Never Substance use type: does not use Education Level: college Details: [employer] freshman Pets and animals: Yes Pets and animals: dog(s) and hamster(s) Current gender identity: female Do you feel safe at home: Yes Do you feel safe in your relationship?: Yes Female Reproductive History Menstrual Age of Menarche: 12 control method: pills History History 0 Para Hx # Term Pregnancies Multiple births Hx # Pregnancies Ectopic pregnancies AB induced Hx Number of Living Children AB spontaneous
[2024-10-05 11:38] LABS: Glucose Negative (Negative)
[2024-10-05 12:00] LABS: Abs Immature Grans 0.01 10^3/uL (0.0-0.06); HCT 40.8 % (36.0-46.0); HGB 13.8 g/dL (11.2-15.7); Immature Grans % 0.1 %; MCH 30.5 pg (27.0-33.0); MCHC 33.8 % (32.0-36.0); MCV 90 fL (80-95); MPV 9.8 fL (8.0-11.0); Platelet Count 352 10^3/uL (130-400); RBC 4.52 10^6/uL (3.93-5.22); RDW 12.4 % (11.7-14.6); RDW-SD 41.2 fL; WBC 10.70 10^3/uL (4.4-10.8)
[2024-10-05] MEDS: Lactated Ringers 1,000 ML 1000 ML IV (12:19)
[2024-10-05] MEDS: Normal Saline - Diluent 50 ML VIAL IJ (12:26)
[2024-10-05] MEDS: Omnipaque 350 MG/ML 100 ML BTL 75 ML IJ (12:27)
[2024-10-05] MEDS: Acetaminophen 500 MG TAB (12:27)
[2024-10-05 12:29] LABS: ALT 16 U/L (14-59); AST 32 U/L (15-37); Albumin 4.1 g/dL (3.4-5.0); Alkaline Phosphatase 88 U/L (46-116); Anion Gap 7.8 mmol/L (3-11); BUN 7 mg/dL (7-18); Bilirubin, Total 0.4 mg/dL (0.2-1.0); CO2 26.2 mmol/L (21.0-32.0); Calcium 9.3 mg/dL (8.5-10.1); Chloride 104 mmol/L (98-107); Estimated GFR 124.55 (mL/min/1.73m2); Glucose 93 mg/dL (74-106); Magnesium 2.0 mg/dL (1.8-2.4); Potassium 4.8 mmol/L (3.5-5.1); Sodium 138 mmol/L (136-145); Total Protein 7.5 g/dL (6.4-8.2)
--- NOTE | 2024-10-05 12:30 | DI.CT_ITS ---
Exam(s) CT ABDOMEN PELVIS W EXAM: CT ABDOMEN PELVIS W CLINICAL HISTORY: RLQ pain TECHNIQUE: Imaging Protocol: Axial computed tomography images with coronal and sagittal reformatted images were created and reviewed. CONTRAST MATERIAL: Intravenous: Contrast Contrast volume:75 mL Oral: No COMPARISON: CT CT ABDOMEN PELVIS W from 04/22/2021 FINDINGS: ABDOMEN: Lung Bases: No acute abnormality. Liver: Normal density. No measurable mass. Portal, Superior Mesenteric, and Splenic Veins: Unremarkable. Gallbladder and Biliary Tract: No radiodense calculus or dilation. Pancreas: Normal density, no abnormal calcifications or inflammatory process. Spleen: Normal. Adrenals: No masses seen. Kidneys: Normal size, contour and axis. No radiodense stones or obstructive uropathy. No masses seen. Abdominal Aorta: Abdominal portion non-dilated. Bowel: No obstruction or bowel wall thickening. Appendix is unremarkable. Peritoneal Cavity: There is a small amount of fluid in the cul-de-sac which may be physiologic. No free air. Lymph Nodes: Within normal limits. Bones: Within normal limits for the patient's age. Soft Tissues: Unremarkable. PELVIS: Bladder: Symmetric distention, no gross wall thickening. Reproductive Organs: There is a 1.7 cm corpus luteal cyst on the right ovary. Lymph Nodes: Within normal limits. Bones: Within normal limits for the patient's age. IMPRESSION: 1. There is no evidence of acute appendicitis. 2. 1.7 cm right ovarian corpus luteal cyst. 3. Small amount of free fluid in the cul-de-sac which may be physiologic. RADIATION DOSE DELIVERED: 264.47mGy.cm Total DLP DATA REPOSITORY: All CT scans at this facility are submitted to the National Radiology Data Registry (NRDR) Dose Index Registry (DIR) with the [employer] (ACR). RADIATION OPTIMIZATION: All CT scans at this facility use at least one of these dose optimization techniques: automated exposure control; mA and/or kV adjustment per patient size (includes targeted exams where dose is matched to clinical indication); or iterative reconstruction.
[2024-10-05 14:59] VITALS: BP 94/67; PULSE 68; O2SAT 100
== END 2024-10-05 15:13 | disposition home or self-care (01) ==
PROVIDERS: Emergency Provider Physician Assistant; PCP Student in an Organized Health Care Education/Training Program
DX: R11.0 Nausea; N83.291 Other ovarian cyst, right side; R10.31 Right lower quadrant pain
CPT/HCPCS: 80053; 81025; 96360; 99285; 74177; 81003; 83735; 85025; 99284; J3490